=== PATIENT | female | born 1990 | race Caucasian/White ===

== ENCOUNTER 2017-06-27 11:59 | Emergency (ER) | payer BC ==
[2017-06-27] MEDS ORDERED: Silver Sulfadiazine 1% Crm 400 GM Jar TOP ONE (12:05)
[2017-06-27] MEDS ORDERED: Morphine 2 MG/ML Syringe IM ONE (12:05)
[2017-06-27] MEDS ORDERED: Silver Sulfadiazine 1% Crm 50 GM Tube TOP ONE ×2 (12:06→12:07)
[2017-06-27] MEDS ORDERED: Diphtheria,Pertussis(Acell),Tetanus Vaccine 0.5 ML Syringe IM ONE (12:06)
[2017-06-27] MEDS ORDERED: Morphine 2 MG/ML Syringe ONE (12:07)
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
[2017-06-27] MEDS ORDERED: HYDROmorphone 2 MG/ML Syringe IVPUSH ONE (12:34)
[2017-06-27] MEDS ORDERED: Sodium Chloride 0.9% 1,000 ML IV ONE (12:36)
== END 2017-06-27 14:08 | disposition home or self-care (01) ==
LOC: MW.ED 11:59
DX: T24.202A Burn of second degree of unspecified site of left lower limb, except ankle and foot, initial encounter (principal); X15.8XXA Contact with other hot household appliances, initial encounter
CPT/HCPCS: 16020; 90471; 90715; 96361; 96372; 96374; 99283; J1170; J2270; J7040; A9270-GY